=== PATIENT | female | born 1940 | race Caucasian/White ===

== ENCOUNTER 2021-12-25 22:25 | Emergency (ER) | payer OTHER ==
[2021-12-25 22:39] VITALS: BP 131/47; PULSE 80; RESP 18; TEMP 98.3; BMI 21.4
[2021-12-26 00:36] LABS: BASO % 0.6 % (0-2.0); EOS % 5.2 % (0-4.5); HEMATOCRIT 28.5 % (32.4-45.2); HEMOGLOBIN 9.6 GM/dL (10.7-15.3); LYMPH % 35.5 % (8-40); MCH 31.4 pg (25.7-33.7); MCHC 33.5 g/dl (32.0-36.0); MEAN CELL VOLUME 93.5 fl (80-96); MONO % 10.5 % (3.8-10.2); NEUT % 48.2 % (42.8-82.8); PLATELET COUNT 262 10^3/uL (134-434); RBC 3.05 M/mm3 (3.60-5.2); WHITE BLOOD COUNT 4.6 K/mm3 (4.0-10.0)
[2021-12-26 00:56] LABS: CHLORIDE 104 mmol/L (98-107); SODIUM 131 mmol/L (136-145)
[2021-12-26 01:00] LABS: ALBUMIN 3.4 g/dl (3.4-5.0); BLOOD UREA NITROGEN 27.3 mg/dL (7-18); CALCIUM 8.9 mg/dL (8.5-10.1); CO2 20 mmol/L (21-32); GLUCOSE,RANDOM 111 mg/dL (74-106); MAGNESIUM 1.8 mg/dL (1.8-2.4)
[2021-12-26 01:03] LABS: CREATININE 0.9 mg/dL (0.55-1.3); PHOSPHOROUS 2.8 mg/dL (2.5-4.9); SGOT/AST 25 U/L (15-37); SGPT/ALT 20 U/L (13-61)
[2021-12-26 01:05] LABS: BILIRUBIN,TOTAL 0.3 mg/dL (0.2-1); TOT PROT 7.3 g/dl (6.4-8.2)
[2021-12-26 01:06] LABS: ALK PHOS 103 U/L (45-117)
[2021-12-26 01:11] LABS: ANION GAP 7 MMOL/L (8-16)
[2021-12-26 02:55] LABS: CALCIUM 8.6 mg/dL (8.5-10.1)
[2021-12-26 02:59] LABS: CREATININE 0.9 mg/dL (0.55-1.3)
[2021-12-26] MEDS ORDERED: LACTATED RINGERS SOLUTION 1000 ML INFUS.BAG IV ONE (02:59)
== END 2021-12-26 05:12 | disposition home or self-care (01) ==
LOC: JER 22:25
DX: R19.7 Diarrhea, unspecified (principal)
CPT/HCPCS: 36415; 74177-TC; 80048; 80053; 83735; 84100; 85025; 93005; 93010; 99285-25; C9803-CS; Q9967; U0003; U0005